=== PATIENT | female | born 1990 | race Caucasian/White ===

== ENCOUNTER 2025-06-25 11:20 | Outpatient (REF) | payer BC, OTHER, SELFPAY ==
--- OUTSIDE RECORDS SUMMARY | 2025-06-25 12:16 | XMS_ITS | Encounter Summary ---
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 Name Role Phone Kimber Steen MD Primary Care Provider Unavail able Encounter Details Date Type Department Care Team Description 03/08/2018 Business Doc Medical Records [address] [place] [id number] Abstract, Provider Social History Tobacco Use Types Packs/Day Years Used Date Smoking Tobacco: Every Day Cigarettes 0.5 Smokeless Tobacco: Never Comments:started at age 20 Alcohol Use Standard Drinks/Week Comments Yes 0 (1 standard drink = 0.6 oz pur e alcohol) beer on rare occasions Sex Assigned at Date Recorded Not on file documented as of this encounter Plan of Treatment Not on file documented as of this encounter Visit Diagnoses Not on filedocumented in this encounter Care Teams [employer] Relationship Specialty Start Date End Date Kimber Steen MD PCP - General Internal Medicine 01/06/18 documented as of this encounter
== END 2025-06-25 11:21 | disposition home or self-care (01) ==
LOC: HO.HOSX 11:20
PROVIDERS: Visit Provider Orthopaedic Surgery
DX: Z13.89 Encounter for screening for other disorder (principal)

== ENCOUNTER 2025-06-27 08:25 | Outpatient (AMB) | payer BC, SELFPAY ==
[2025-06-27 08:41] VITALS: BMI 23.0
--- NOTE | 2025-06-27 08:41 | A.OFFVIS_ITS ---
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 Patient reports she is having pain all around her wrist mainly on her ulnar aspect of hand. She is having numbness and tingling on and off thought out the day everyday and worsens at night time. She wears her wrist brace with some relief. This started about 1-2 years ago and has worsen in the last 3 weeks. No EMG done. 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 Her chief complaint is of right wrist and forearm pain that began about 3 weeks ago when she was using a knife in an X like motion to cut ribs and felt sudden pain in her wrist and forearm. This was then exacerbated by her activities at work. It sounds like she has not work now in a couple of weeks because they sent her home. She also appreciates numbness and tingling primarily to the right middle and ring fingers that it has gotten worse since this episode, but was present to some degree less frequently before hand. Now it is intermittent but daily. She has some pain in the ulnar aspect of her wrist but also in the 1st dorsal compartment area. She also has pain that radiates up the dorsal and ulnar aspect of her forearm to the lateral aspect of her right elbow. 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 Physical Exam Vital Signs: BMI result Body Mass Index 23.0 Const General: cooperative, healthy appearing and no acute distress Orientation/consciousness: oriented to person and oriented to place HEENT Head: Yes normocephalic and Yes atraumatic Eyes EOM: EOMs intact bilaterally Resp Effort & Inspection: normal respiratory effort and able to speak in complete sentences Cardio Jugular venous distension: no JVD Skin General skin exam: turgor normal Rashes: no rashes Neuro General: oriented to person and oriented to place Extrem Other: Evaluation of right Upper Extremity: Neuro: Median, ulnar, radial nerves motor and sensory intact. No thenar or intrinsic wasting. Good finger abduction adduction and APB muscle belly firing Vascular: Cap refill brisk. ROM: Can bring fingers closed to a fist and back out to full extension. She does have some pain referred to the dorsal aspect of her forearm and lateral aspect of her elbow with resisted middle and ring finger extension More Mild pain referred to the 1st dorsal compartment with resisted thumb extension Smooth and painless wrist ROM Skin: No lacerations or abrasions. General: No eccymosis. No erythema or evidence of infection. Mild tenderness over the ECU tendon as it passes over the distal ulna and the wrist joint. Mild foveal tenderness She also has some tenderness in the radial capitellar joint area, as well as in some of the dorsal musculature in her dorsal lateral forearm. Extensor origin is tender but not necessarily more tender than other areas Radiographs: Wrist radiographs show no fracture or dislocation or significant arthritic changes Psych Appearance: grossly normal Affect: normal affect Attitude: cooperative Assessment & Plan Assessment & Plan (1) Right wrist pain: Code(s): M25.531 - Pain in right wrist Category: Medical Plan Assessment and plan: 1. Right dorsal ulnar wrist pain radiating up the dorsal forearm to the lateral aspect of the right elbow After using a knife to chop ribs about 3 weeks ago Exacerbated by her activities at work as an patient day coordinator tech 2. Right hand numbness and tingling Began prior to this injury but now is intermittent and daily for the last 3 weeks Extending to the right middle and ring fingers I am ordering an EMG nerve conduction study I am writing her for light duty 2 lb weight limit for the right upper extremity and also to work 4 hours a day, as this is what she thinks she can do to possibly get back to work. Follow up in 3-4 weeks to review the nerve conduction study and see how she is doing I am hoping that her symptoms will improve with some time. At this point I am suspecting a mild tendinitis possibly in the dorsal lateral wrist also possibly mild lateral epicondylitis. A possible wrist sprain involving the ulnar aspect of the wrist is also possible. She has a volar wrist splint which I have told her to only wear with activities but to take off when at rest to work on maintaining wrist range of motion Orders: Orders XR wrist RT min 3V Today M25.531 - Pain in right wrist NE electromyogram (EMG) Today R20.0 - Anesthesia of skin, R20.2 - Paresthesia of skin NE nerve conduction velocity Today R20.0 - Anesthesia of skin, R20.2 - Paresthesia of skin Coding Level of Care Code New Pt Level 4 (03466) Diagnoses Right wrist pain M25.531
== END 2025-06-27 09:54 | disposition home or self-care (01) ==
LOC: HO.HOS 08:25
PROVIDERS: PCP Nurse Practitioner Family; Visit Provider Orthopaedic Surgery
DX: M25.531 Pain in right wrist (principal)
CPT/HCPCS: 99204

== ENCOUNTER → 2025-06-27 08:27 | Outpatient (BNV) | payer BC, SELFPAY | PROVIDERS: Visit Provider Radiology Diagnostic Radiology | DX: M25.531 Pain in right wrist (principal) | CPT/HCPCS: 73110 ==

== ENCOUNTER 2025-06-27 10:07 | Outpatient (REF) | payer BC, OTHER, SELFPAY ==
--- NOTE | ~2025-06-27 | XR_ITS ---
EXAMINATION: XR WRIST 3 OR MORE VIEWS RIGHT HISTORY: M25.531 - Pain in right wrist COMPARISON: There are no prior studies available for comparison. FINDINGS: Three views of the right wrist are submitted. Osseous mineralization is normal. There is no fracture or dislocation. The joint spaces are preserved. The soft tissues are unremarkable. XR/XR wrist RT min 3V IMPRESSION: Unremarkable examination of the right wrist. Electronically signed by: Amrit Martinez MD 06/27/2025 08:39 AM EDT
== END 2025-06-27 10:08 | disposition home or self-care (01) ==
LOC: HO.HOSX 10:07
PROVIDERS: Visit Provider Orthopaedic Surgery
DX: M25.531 Pain in right wrist (principal); M79.631 Pain in right forearm; R20.0 Anesthesia of skin; R20.2 Paresthesia of skin
CPT/HCPCS: 73110

== ENCOUNTER 2025-08-20 09:04 | Outpatient (REF) | payer BC, SELFPAY ==
--- NOTE | ~2025-08-20 | XR_ITS ---
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 FINDINGS: Lungs are clear, heart size normal. There is no sign of pleural effusion. Calcific density projects over the left lateral lower lung. It was present on the prior but partially obscured by pulmonary vessels. XR/XR chest 2V IMPRESSION: No acute disease Electronically signed by: Robert Adams MD 08/20/2025 02:10 PM EDT
[2025-08-20 14:20] LABS: Hematocrit 40.3 % (37.0-47.0); Hemoglobin 13.5 g/dl (12.0-16.0); Mean Corpuscular HGB Conc 33.5 g/dl (31.0-35.0); Mean Corpuscular Hemoglobin 32.8 pg (27.0-33.0); Mean Corpuscular Volume 97.8 fL (80.0-98.0); NRBC Abs Auto 0.000 X10*3/uL (0.0-0.012); NRBC Pct Auto 0.0 /100WBC (0.0-0.2); Platelet Count 283 X10*3/uL (160-400); Red Blood Count 4.12 X10*6/uL (4.20-5.50); White Blood Count 6.6 X10*3/uL (4.8-10.8)
[2025-08-20 14:30] LABS: Total Hemoglobin (HGBA1C) 3536.3527 umol/L
[2025-08-20 14:53] LABS: Alanine Aminotransferase 14 U/L (0-31); Albumin Level 4.3 g/dL (3.5-5.0); Alkaline Phosphatase 43 U/L (39-117); Anion Gap 8 (12-20); Aspartate Amino Transferase 26 U/L (5-31); Blood Urea Nitrogen 12 mg/dL (9-16); Calcium 9.1 mg/dL (8.4-10.2); Carbon Dioxide 24 mmol/L (22-29); Chloride 112 mmol/L (96-108); Cholesterol 145 mg/dL (<200); Estimated Glomerular Filt Rate > 60; HDL Cholesterol 45 mg/dL (>40); Potassium 4.1 mmol/L (3.3-5.1); Sodium 140 mmol/L (135-145); Total Protein 6.9 g/dL (6.5-8.0); Triglycerides 38 mg/dL (<150)
[2025-08-20 15:07] LABS: Folate 12.1 ng/mL (> or = 4.0); Vitamin B12 510 pg/mL (200-900)
[2025-08-21 05:16] LABS: Syphilis Screen Nonreactive (Nonreactive)
[2025-08-21 05:47] LABS: HBc Num1 0.06 S/CO (0.00-0.79); HBsAGNum1 0.34 S/CO (0.00-0.99); HIV Num 1 0.05 S/CO (0.00-0.99); Hepatitis A Antibody IgM 0.16 Index (0-0.79); Hepatitis B Surface Antigen Negative (Negative); ~HepC Num1 0.08 S/CO (0.00-0.79); ~Hepatitis A Antibody IgM Nonreactive (Nonreactive); ~Hepatitis B Surface Antibody REACTIVE (Nonreactive); ~Hepatitis C Antibody Nonreactive (Nonreactive)
== END 2025-08-20 09:05 | disposition home or self-care (01) ==
LOC: HO.WFDLDS 09:04
PROVIDERS: PCP Nurse Practitioner Family; Visit Provider Nurse Practitioner Family
DX: Z76.89 Persons encountering health services in other specified circumstances (principal); Z28.21 Immunization not carried out because of patient refusal; Z13.9 Encounter for screening, unspecified; R63.4 Abnormal weight loss; Q76.6 Other congenital malformations of ribs; F33.0 Major depressive disorder, recurrent, mild; F41.1 Generalized anxiety disorder; F14.10 Cocaine abuse, uncomplicated; K21.9 Gastro-esophageal reflux disease without esophagitis; N94.6 Dysmenorrhea, unspecified; R51.9 Headache, unspecified; M25.531 Pain in right wrist; F17.210 Nicotine dependence, cigarettes, uncomplicated; Z71.6 Tobacco abuse counseling
CPT/HCPCS: 36415; 71046; 80053; 80061; 82306; 82607; 82746; 83036; 84443; 85027; 86704; 86706; 86709; 86780; 86803; 87340; 87389; 96127

== ENCOUNTER 2025-08-20 09:04 | Outpatient (AMB) | payer BC, SELFPAY ==
--- NOTE | 2025-08-20 09:07 | MHC.PC.OV ---
Vital Signs 08/20/25 09:16 Height 5 ft 3 in Weight 127 lb 2 oz BMI 22.5 BP 132/70 Blood Pressure Location Lt brachial Position Sitting Respiration 12 Pulse 77 Pulse Source Pulse Oximeter Temp 97.2 F Temp Source Oral Pulse Oximetry (%) 98 Oxygen Delivery Method Room Air Intake Visit Reasons: CPE Intake Note: New patient to establish care and cpe. Sail Maker Required: No Allergies No Known Allergies Allergy (Mild, Verified 08/20/25 09:44) NOT APPLICABLE Medication List - [facility] Known Home Meds Tobacco use date assessed: 08/20/25 Dental Screening Dental Screen Date: 08/20/25 Did you have a dental visit in the last 12 months?: No Did you have a dental problem in the last 6 months where you did not have access to dental care?: No Was dental information given to patient?: No HPI HPI Comments History of Present Illness Details 34 y/o F with JUAN JOSE, RENUKA, MDD, cocaine use, Dysmenorrhea, headaches s/p tubal ligation, skin cyst of left leg removed in childhood. 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G scheduled 09/14/25 History of Present Illness The patient is a 34 year old female presenting to [facility] care, no previous records; states no PCP in years. c/o unintentional weight loss, painful menstrual periods, and bump/rib prominence. Unintentional weight loss: - Recent, significant unintentional weight loss. - Noted new rib bump possibly related, L side unsure if now visible d/t wt loss or something to be worried about - Feels bumps along jaw that she can move - Stress associated with familial and employment changes. - No weight loss medications; no strong cancer family history. Carpal tunnel syndrome (suspected), R - Ongoing wrist pain under orthopedic review. - Scheduled nerve test; no current confirmed diagnosis. - [facility] Cocaine use disorder: - 6-year history of cocaine use; recreational start now problematic. - Maintains consistent usage pattern; no treatment pursued yet. - Interested in [facility] referral and Com. Michael for help with + thrive and counseling Painful menses: - Regular cycles with intensified pain. - History of ovarian cyst surgery in youth. - Needs LONG LINE TEAMSTER , referred to [facility] LONG LINE TEAMSTER today Headaches worse around time of periods Gastroesophageal reflux disease (GERD): - Frequent heartburn. - Occasional omeprazole use (husbands) - Identified food triggers. Tob dep: smoking and vaping. Review of Systems - General: Reports unintentional weight loss, denies fatigue. - Neurological: Reports headaches. - Psych: Reports stress related to family and financial issues. - Respiratory: Denies shortness of breath. - Cardiovascular: Denies chest pain or palpitations. - Gastrointestinal: Reports frequent heartburn; denies vomiting or blood in stool. - Musculoskeletal: Reports wrist pain. - Skin: Reports recent development of a rash. - Genitourinary: Denies current urinary issues. - Hematological: Reports family history of liver cancer. Physical Exam General: Well developed, well nourished, in no acute distress. Appears older than stated age. Head: Normocephalic, atraumatic. Eyes: Pupils are equal, round and reactive to light and accommodation. Conjunctivae are clear, scleras anicteric Nose: Congested, turbinates edematous Pharynx/oral mucosa WNL. Shotty cervical anenopathy generally speaking, nontender Lungs:Dim throughout, anterior left rib is a bondy prominence, nontender, obvious when lying flat Heart: Regular rate and rhythm. No murmurs, click, rubs or gallops are noted. Abdomen: Bowel sounds present in all quadrants. Mildly tender generally speaking w/o rebound Musculoskeletal: Joints are nontender, without swelling, redness, or effusions. Pulses: Peripheral pulses are equal and palpable bilaterally. Extremities: No clubbing, cyanosis nor edema is noted. Psych: Mood and affect appropriate. Results Pending Discussion Notes I discussed with the patient the various aspects of her presentation, including the likely causes of her weight loss which could be stress-related given her family and housing changes, and she expressed concern for other potential medical explanations, leading us to plan comprehensive lab work and imaging. Refer to [facility] to support her in maintaining sobriety. We addressed concerns about her painful menstruation and aligned on pursuing further investigation, including a referral to obstetrics-gynecological referral. For GERD, dietary modification and timing of antacids were discussed, cautioning against using certain medications with stool tests to avoid interference. She consented to referrals and diagnostic procedures, understanding the importance of follow-up for an accurate diagnosis and management approach. Patient was given time to ask questions. All questions were answered to their satisfaction. Assessment and Plan 1. Unintentional weight loss - Labs and imaging ordered. - Explore stress and diet factors. 2. Carpal tunnel syndrome (suspected), R - Await nerve test results. - FU with [facility] 3. Cocaine use disorder - Referred to [facility]. - Support discussed. 4. Painful menses - Referral to MANAGER STUDY. 5. Gastroesophageal reflux disease (GERD) - Dietary and symptom advice given. - Medication timing discussed. Smoking cessation, CXR to eval finding on rib, NN referral for thrive and counseling, RTO 1 week to fu Patient Instructions - Get blood tests and x-ray as soon as possible. - Attend scheduled appointment at [facility] and MANAGER STUDY. - Watch for triggers that make heartburn worse and avoid them. - Take any medicine as directed by healthcare providers. - Monitor symptoms and tell us if they get worse. - Sign up for the Patient Portal for easy communication with us. Consent Patient was informed and verbally consented to the use of an ambient scribe for clinic note documentation during this visit. Total time spent caring for the patient today was 45 minutes. This includes time spent before the visit reviewing the chart, time spent during the visit, and time spent after the visit on documentation, reviewing laboratory results, diagnostic imaging, medications, performing a medically necessary evaluation, counseling on diagnoses, care coordination, ordering appropriate tests, ordering appropriate medications, review of tests performed by other providers, reporting test results with the patient, communication with other healthcare providers. [facility] Medical History (Updated 08/20/25 @ 10:13 by Soraya aSdler, [facility]) Drug addiction GERD (gastroesophageal reflux disease) Headache Surgical History (Updated 08/20/25 @ 09:22 by Sathish Bolden MA) H/O tubal ligation Family History (Updated 08/20/25 @ 09:23 by Sathish Bolden MA) Sister Asthma Father HTN (hypertension) High cholesterol Paternal Grandmother High cholesterol Paternal Grandfather Thyroid disorder Social History (Updated 08/20/25 @ 09:19 by Sathish Bolden MA) Household Members: Spouse and Children Both parents involved: No Caregiver staying overnight: No Housing: Condominium Are you a primary caregivers non medical to a significant other at home: Yes Do you presently have visiting nurse or other home services: No 75 years or older and lives alone: No Alcohol intake: current Alcohol intake frequency: a few times a month Patient Tobacco Use Status: Current everyday Tobacco user Tobacco use type: Cigarette Cigarettes Per Day: 4 e-Cigarette/Vaping Use: Never Used Second Hand Smoke Exposure: No Substance Use Type: Marijuana service: No Current occupational status: employed 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 1. Little interest or pleasure in doing things: several days 2. Feeling down, depressed, or hopeless: several days 3. Trouble falling or staying asleep, or sleeping too much: several days 4. Feeling tired or having little energy: several days 5. Poor appetite or overeating: several days 6. Feeling bad about yourself - or that you are a failure or have let yourself or your family down: several days 7. Trouble concentrating on things, such as reading the newspaper or watching television: several days 8. Moving or speaking so slowly that other people could have noticed. Or the opposite - being so fidgety or restless that you have been moving around a lot more than usual: several days 9. Thoughts that you would be better off or of hurting yourself in some way: not at all Total score: 8 Depression Screening Interpretation: Positive Depression Screening Follow-up: Existing condition and In treatment Depression Screening Done: Yes 08942 - PHQ-9 Billing: Yes Source: Developed by Drs. Amrit Dutton, Jocelyn Díaz, Justice White and colleagues, with an educational bert from [employer]. Thrive Questionnaire Date Thrive assessed: 08/20/25 I am a: Patient What is your living situation today?: I have a steady place to live Within the past 12 months, did the food you bought not last and you didn't have the money to get more?: Sometimes True Within the past 12 months, did you worry whether your food would run out before you got money to buy more?: Sometimes True Do you have trouble paying for medicines?: I choose not to answer this question Do you have trouble getting transportation to medical appointments?: No Do you have trouble paying your heating and electricity bill?: Yes Do you have trouble taking care of your child, family member or friend?: No Do you have trouble with day-to-day activities such as bathing, preparing meals, shopping, managing finances, etc.?: No Are you currently unemployed and looking for a job?: No Are you interested in more education?: No Please select the resources that you would like help with: None Currently or been in a relationship where the following occur: No concerns reported THRIVE Score: 3 AUDIT C Alcohol Use Questionnaire (AUDIT-C) 1. How often do you have a drink containing alcohol?: Monthly or less 2. How many drinks containing alcohol do you have on a typical day when you are drinking?: 1 or 2 3. How often do you have six or more drinks on one occasion?: Never Total Score: 1 Score Reviewed/Action Taken: Yes RENUKA-7 AMB Questionnaire RENUKA-7 Date RENUKA - 7 assessed: 08/20/25 Feeling nervous, anxious, or on edge: 0 = Not at all Not being able to stop or control worryin = Several days Worrying too much about different things: 1 = Several days Trouble relaxin = Several days Being so restless that it is hard to sit still: 1 = Several days Becoming easily annoyed or irritable: 1 = Several days Feeling afraid as if something awful might happen: 1 = Several days Total RENUKA-7 score (0-4 normal; 5-9 mild; 10-14 moderate; 15-21 severe): 6 Source: Developed by Drs. Amrit Dutton, Jocelyn Díaz, Justice White and colleagues, with an educational bert from [employer]. RENUKA-7 Assessment Billing RENUKA-7 Assessment Tool: RENUKA-7 Assessment 60400 Physical exam (Primary Care) Vital Signs: Last Vital Signs Temp 97.2 F 08/20/25 09:16 Pulse 77 08/20/25 09:16 Resp 12 08/20/25 09:16 BP 132/70 08/20/25 09:16 Pulse Ox 98 08/20/25 09:16 Oxygen Delivery Method Room Air 08/20/25 09:16 BMI result Body Mass Index 22.5 Tobacco/Smoking Status: Tobacco use Status Tobacco use date assessed 08/20/25 08/20/25 09:17 Patient Tobacco Use Status Current everyday Tobacco 08/20/25 09:23 Tobacco use type Cigarette 08/20/25 09:23 e-Cigarette/Vaping Use Never Used 08/20/25 09:19 Are you ready to quit: No Tobacco cessation counseling provided: Yes Items discussed: Nicotine replacement, QuitWorks and Other Relapse Prevention: discussed the importance of a supportive environment, discussed extending NRT, discussed negative mood or depression after quitting, weight gain after smoking is common and discussed dietary, exercise and/or lifestyle changes Number of minutes spent counselin CPT code: 77320 - 4-10 Minutes PHQ-9: PHQ-9 Score PHQ-9: Total score 8 08/20/25 09:17 Depression Screening Interpretation: Positive Depression Screening Follow-up: Existing condition and In treatment Thrive Assessment: Date of Thrive Assessment Date Thrive assessed 08/20/25 08/20/25 09:17 Currently or been in a relationship where the following occur: No concerns reported Coding Level of Care Code New Pt Level 4 (18679) Complex EM visit Add On G2211 Diagnoses Encounter to establish care with new provider Z76.89 Encounter for screening involving social determinants of health (SDoH) Z13.9 Mild episode of recurrent major depressive disorder F33.0 Major depression episode severity: mild RENUKA (generalized anxiety disorder) F41.1 Cocaine use disorder F14.10 Weight loss R63.4 Gastroesophageal reflux disease without esophagitis K21.9 Esophagitis presence: without esophagitis Dysmenorrhea N94.6 Influenza vaccination declined Z28.21 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 Tobacco dependence F17.200 Headache R51.9 Right wrist pain M25.531 Additional Codes RENUKA-7 Assessment Billing - RENUKA-7 Assessment Tool: RENUKA-7 Assessment 08962 ([id number]) PHQ-9 - 99635 - PHQ-9 Billing: Yes ([id number]) Vital Signs *Quality* - CPT code: 56261 - 4-10 Minutes ([id number]) Assessment & Plan Assessment & Plan (1) Encounter to establish care with new provider: Code(s): Z76.89 - Persons encountering health services in other specified circumstances Category: Medical (2) Encounter for screening involving social determinants of health (SDoH): Code(s): Z13.9 - Encounter for screening, unspecified Category: Medical (3) MDD (major depressive disorder), recurrent episode: Code(s): F33.9 - Major depressive disorder, recurrent, unspecified Category: Medical Qualifiers: Major depression episode severity: mild Qualified Code(s): F33.0 - Major depressive disorder, recurrent, mild (4) RENUKA (generalized anxiety disorder): Code(s): F41.1 - Generalized anxiety disorder Category: Medical (5) Cocaine use disorder: Code(s): F14.10 - Cocaine abuse, uncomplicated Category: Medical (6) Weight loss: Code(s): R63.4 - Abnormal weight loss Category: Medical (7) GERD (gastroesophageal reflux disease): Code(s): K21.9 - Gastro-esophageal reflux disease without esophagitis Category: Medical Qualifiers: Esophagitis presence: without esophagitis Qualified Code(s): K21.9 - Gastro-esophageal reflux disease without esophagitis (8) Dysmenorrhea: Code(s): N94.6 - Dysmenorrhea, unspecified Category: Medical (9) Influenza vaccination declined: Code(s): Z28.21 - Immunization not carried out because of patient refusal Category: Medical (10) Abnormal prominence of rib: Code(s): 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 Orders: Orders Complete Blood Count no Diff Today R63.4 - Abnormal weight loss Comprehensive Met. Panel Today R63.4 - Abnormal weight loss Hemoglobin A1c Today R63.4 - Abnormal weight loss Microalbumin, Random (w Creat) Today R63.4 - Abnormal weight loss UA CC w/rflx Micro + Cult Today R30.0 - Dysuria, R63.4 - Abnormal weight loss TSH reflex Free T4 Today R63.4 - Abnormal weight loss Vitamin D 25-OH Total Today R63.4 - Abnormal weight loss HIV Ab/Ag Today R63.4 - Abnormal weight loss Lipid Panel Today R63.4 - Abnormal weight loss Vitamin B12 and Folate Today R63.4 - Abnormal weight loss Syphilis Screen Today R63.4 - Abnormal weight loss Hepatitis A,B,C Profile Today R63.4 - Abnormal weight loss H pylori Ag Stool Today K21.9 - Gastro-esophageal reflux disease without esophagitis XR chest 2V Today F17.200 - Nicotine dependence, unspecified, uncomplicated, 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 Seasonal Allergies ? Insect Bites ? Cough ? Diarrhea ? Acute Asthma Attacks ? Back, Knee or Joint Pain ? Ear Infection ? Fever without a Rash ? Headaches ? Nausea ? [place] Eye, Rash or Skin Irritation ? Sore Throat ? Sports Physicals ? Vomiting Most insurances are accepted. Patients do not need to be part of the [facility] to seek care at the walk-in clinic. Locations [address], [place] Open Wednesday through Wednesday 8am-5pm *Hours may vary due to staffing availability. To confirm Walk-In Care hours please call. [facility] , [place] [address] ? [phone] [facility] [place] [place] Walk-In Care in [place] provides services to ages 18 and over. Open Wednesday-Wednesday: 7 a.m. to 5 p.m. and Wednesday: 9 a.m. to 3 p.m.* *Hours may vary due to staffing availability. To confirm Walk-In Care hours in [place], please call [phone]. [address] [place] [address] ? [phone] [facility] [place] [place] Walk-In Care in [place] provides services to ages 12 and over. Open Wednesday-Wednesday: 8 a.m. to 5 p.m. Hours may vary due to staffing availability. To confirm Walk-In Care hours in [place], please call [phone]. LABORATORY SERVICES: [facility] ? Primary Location [address] [place] [address] Wednesday through Wednesday 6:00 AM ? 5:00 PM Wednesday 7:00 AM ? 11:00 AM* [phone] [facility] is centrally located near the front entrance of the [facility] for easy outpatient access. Convenient parking is provided for outpatients. *Hours may vary due to staffing availability. To confirm Laboratory hours for any location, please call [phone]. Offsite Location For your convenience, we offer offsite laboratory draw stations at the following locations: [address] [place] [address] ? [facility] [address], [address] Wednesday through Wednesday 7:30 AM ? 1:00 PM* [phone] *Hours may vary due to staffing availability. To confirm Laboratory hours for any location, please call [phone]. [place] ? [address] Wednesday through Wednesday 6:00 AM ? 3:30 PM* Wednesday 6:30 AM ? 3 PM* [phone] *Hours may vary due to staffing availability. To confirm Laboratory hours for any location, please call [phone]. [address] [facility] Wednesday through Wednesday 7:30 AM ? 4:00 PM* [phone] *Hours may vary due to staffing availability. To confirm Laboratory hours for any location, please call [phone] [place] [address] Wednesday through 9:00 AM ? 4:00 PM* *Hours may vary due to staffing availability. To confirm Laboratory hours for any location, please call [phone]. Appointments are not necessary. Walk-ins are welcome. Like all the departments throughout the [facility], our Lab undergoes frequent reviews to ensure the quality and accuracy of test results, and our staff takes special pride in its status as a nationally accredited facility. Patient Portal: [facility] ONE PATIENT. ONE RECORD. BETTER CARE. [facility] has a fully integrated, cutting-edge mobile electronic health information system that has revolutionized the way we care for our patients and manage our organization. This system improves communication and coordination enabling us to provide safe, higher-quality care, and an overall positive experience for staff and patients. Our first priority, as always, is to deliver the highest quality care possible. The system is running in the background supporting that priority. This portal is for all [facility] services and practices. If you are experiencing any technical difficulties with enrolling or logging into the Patient Portal please complete the [facility] Patient Portal Technical Support Form. [facility] now offers a new secure on-line interactive tool for patients to review their health information ? ?Patient Portal. This interactive web portal will enable patients and their families to take an active role in their care by providing easy, secure access to their health information via the internet. The Patient Portal provides patients with instant access to their health information, including laboratory results, medications, allergies, demographic information, visit history, and more. In addition to managing their own care, parents and health care proxies with authorized consent will appreciate the ability to access the records of those individuals for whom they provide care. Please note: if you wish to gain access (Proxy) to another patient?s portal, you will be required to come to the Medical Records Department in person at [facility]. Both the patient giving proxy access and the proxy will need to provide photo identification and complete the appropriate authorization. The Patient Portal also allows track their appointments online. The [facility] Patient Portal also saves patients time by allowing them to submit updates to their demographic and contact information prior to their visits. Portal email notifications will also alert patients to any new activity on their portal, such as test results and new appointments. In order to initially enroll in the [facility] Patient Portal, you will need to enter some required information including the following: your [facility] Medical Record number your personal home email address name date of Please note: In order to enroll in the [facility] Patient Portal, we need to have your email address on file in your electronic medical record. ?The email address needs to be specific for one person (yourself) in order for your Portal enrollment to be successful. ?You can update your email address in person with our Registration staff when you are registering for a hospital visit. ?Otherwise, you will need to come to the Health Information Management (Medical Records) Department at [facility]. ?We are open from Wednesday ? Wednesday from 7:30 a.m. ? 4:30 p.m. ?You will be required to present a photo id. Once you have successfully enrolled in the Patient Portal, you will receive a one-time user id and password for the Portal, sent to your email address. ?This will allow you to log into the Patient Portal within 99 hrs and reset your own logon id and password, and define personal security questions. ?Once your permanent login and password have been set, you can log into the [facility] Patient Portal at any time via the blue button above or from the Portal Logon button on any page of the [facility] website. [facility] encourage all of our patients to enroll in Patient Portal as it presents a valuable opportunity for patients and their families to actively participate in their care and stay healthy Welcome to [facility]. ?We look forward to working with you.
[2025-08-20 09:16] VITALS: BP 132/70; PULSE 77; RESP 12; TEMP 36.2; O2SAT 98; BMI 22.5
== END 2025-08-20 10:06 | disposition home or self-care (01) ==
LOC: HO.HMCFM 09:05
PROVIDERS: PCP Nurse Practitioner Family; Visit Provider Nurse Practitioner Family
DX: F33.0 Major depressive disorder, recurrent, mild (principal); F14.10 Cocaine abuse, uncomplicated; R63.4 Abnormal weight loss; F41.1 Generalized anxiety disorder; K21.9 Gastro-esophageal reflux disease without esophagitis; N94.6 Dysmenorrhea, unspecified; R51.9 Headache, unspecified; M25.531 Pain in right wrist; Z28.21 Immunization not carried out because of patient refusal; Q76.6 Other congenital malformations of ribs; F17.200 Nicotine dependence, unspecified, uncomplicated

== ENCOUNTER → 2025-08-20 13:39 | Outpatient (BNV) | payer BC, SELFPAY | PROVIDERS: PCP Nurse Practitioner Family; Visit Provider Radiology Diagnostic Radiology | DX: Q76.6 Other congenital malformations of ribs (principal) | CPT/HCPCS: 71046 ==

== ENCOUNTER 2025-08-27 10:28 | Outpatient (AMB) | payer BC, SELFPAY ==
--- NOTE | 2025-08-27 10:31 | MHC.PC.OV ---
Vital Signs 08/27/25 10:36 08/27/25 11:15 Height 5 ft 3 in Weight 129 lb 6 oz BMI 22.9 BP 142/78 H 132/76 Blood Pressure Location Lt brachial Rt brachial Position Sitting Sitting Respiration 13 Pulse 78 Pulse Source Pulse Oximeter Temp 97.1 F Temp Source Oral Pulse Oximetry (%) 99 Oxygen Delivery Method Room Air Intake Visit Reasons: 1 week fu labs/wt loss 30 min Intake Note: Follow up review labs. Patient c/o upper abd px since this morning and worse when touching it. Shrub Planter Required: No Allergies No Known Allergies Allergy (Mild, Verified 08/27/25 10:32) NOT APPLICABLE Medication List - Last Reconciled 08/27/25 by GLORIA Su No Known Home Meds Tobacco use date assessed: 08/27/25 Dental Screening Dental Screen Date: 08/27/25 Did you have a dental visit in the last 12 months?: Yes Did you have a dental problem in the last 6 months where you did not have access to dental care?: No Was dental information given to patient?: Patient has dentist HPI HPI Comments History of Present Illness Details 34 y/o F with JUAN JOSE, RENUKA, MDD, cocaine use, Dysmenorrhea, headaches s/p tubal ligation, skin cyst of left leg removed in childhood. 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 Unintentional weight loss: - Recent, significant unintentional weight loss. - Noted new rib bump possibly related, L side unsure if now visible d/t wt loss or something to be worried about - Feels bumps along jaw that she can move - Stress associated with familial and employment changes. - No weight loss medications; no strong cancer family history. Carpal tunnel syndrome (suspected), R - Ongoing wrist pain under orthopedic review. - Scheduled nerve test; no current confirmed diagnosis. - [facility] Cocaine use disorder: - 6-year history of cocaine use; recreational start now problematic. - Maintains consistent usage pattern; no treatment pursued yet. - Interested in [facility] referral and [employer] [facility] for help with + thrive and counseling Painful menses: - Regular cycles with intensified pain. - History of ovarian cyst surgery in youth. - Needs HYDRAULIC AUTO JACK MECHANIC , referred to [facility] today Headaches worse around time of periods Gastroesophageal reflux disease (GERD): - Frequent heartburn. - Occasional omeprazole use (husbands) - Identified food triggers. Tob dep: smoking and vaping. 08/27/25 Since last OV, feels the same. Labs and CXR reviewed w/ her. Wrong phone # on chart so no referrals have been completed. She will complete the stool for H Pylori in about another week after holding her PPI. Review of Systems - General: Reports unintentional weight loss, denies fatigue. - Neurological: Reports headaches. - Psych: Reports stress related to family and financial issues. - Respiratory: Denies shortness of breath. - Cardiovascular: Denies chest pain or palpitations. - Gastrointestinal: Reports frequent heartburn; denies vomiting or blood in stool. - Musculoskeletal: Reports wrist pain. - Skin: Reports recent development of a rash. - Genitourinary: Denies current urinary issues. - Hematological: Reports family history of liver cancer. Physical Exam General: Well developed, well nourished, in no acute distress. Appears older than stated age. Head: Normocephalic, atraumatic. Eyes: Pupils are equal, round and reactive to light and accommodation. Conjunctivae are clear, scleras anicteric Nose: Congested, turbinates edematous Pharynx/oral mucosa WNL. Shotty cervical anenopathy generally speaking, nontender Lungs:Dim throughout, anterior left rib is a bondy prominence, nontender, obvious when lying flat Heart: Regular rate and rhythm. No murmurs, click, rubs or gallops are noted. Abdomen: Bowel sounds present in all quadrants. Mildly tender generally speaking w/o rebound Musculoskeletal: Joints are nontender, without swelling, redness, or effusions. Pulses: Peripheral pulses are equal and palpable bilaterally. Extremities: No clubbing, cyanosis nor edema is noted. Psych: Mood and affect appropriate. Results see below Discussion Notes I discussed with the patient the lack of recent progression in the calcific density over the left lateral lower lung and the option of further investigation through a CT scan, which may offer a more detailed assessment of the rib and lung area. The patient is advised to proceed with updating her contact information for accurate communications with other healthcare services, including addiction medicine and [facility]CRU[facility] appointments. We discussed obtaining a stool sample once omeprazole cessation is complete to investigate the abdominal pain etiology. Follow-up scheduling was proposed to assess ongoing symptoms and results from further evaluation. Patient was given time to ask questions. All questions were answered to their satisfaction. Assessment and Plan 1. Unintentional weight loss - Labs and imaging ordered. - Explore stress and diet factors. 2. Carpal tunnel syndrome (suspected), R - Await nerve test results. - FU with [facility] 3. Cocaine use disorder - [facility]. - Support discussed. 4. Painful menses - Referral to RECRUITER MANAGER. 5. Gastroesophageal reflux disease (GERD) - Dietary and symptom advice given. - Medication timing discussed. Smoking cessation, CT scan to eval finding on rib, NN referral for thrive and counseling, RTO 4 week to fu, sooner as needed. Consent Patient was informed and verbally consented to the use of an ambient scribe for clinic note documentation during this visit. Total time spent caring for the patient today was 30 minutes. This includes time spent before the visit reviewing the chart, time spent during the visit, and time spent after the visit on documentation, reviewing laboratory results, diagnostic imaging, medications, performing a medically necessary evaluation, counseling on diagnoses, care coordination, ordering appropriate tests, ordering appropriate medications, review of tests performed by other providers, reporting test results with the patient, communication with other healthcare providers. [facility] Medical History (Updated 08/20/25 @ 10:13 by Soraya Sadler, 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 Do you presently have visiting nurse or other home services: No 75 years or older and lives alone: No Alcohol intake: current Alcohol intake frequency: a few times a month Patient Tobacco Use Status: Current everyday Tobacco user Tobacco use type: Cigarette Cigarettes Per Day: 4 e-Cigarette/Vaping Use: Never Used Second Hand Smoke Exposure: No Substance Use Type: Marijuana service: No Current occupational status: employed 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 1. Little interest or pleasure in doing things: not at all 2. Feeling down, depressed, or hopeless: not at all 3. Trouble falling or staying asleep, or sleeping too much: not at all 4. Feeling tired or having little energy: not at all 5. Poor appetite or overeating: not at all 6. Feeling bad about yourself - or that you are a failure or have let yourself or your family down: not at all 7. Trouble concentrating on things, such as reading the newspaper or watching television: not at all 8. Moving or speaking so slowly that other people could have noticed. Or the opposite - being so fidgety or restless that you have been moving around a lot more than usual: not at all 9. Thoughts that you would be better off or of hurting yourself in some way: not at all Total score: 0 Depression Screening Interpretation: Negative Depression Screening Done: Yes 25418 - PHQ-9 Billing: Yes Source: Developed by Drs. Amrit Dutton, Jocelyn Díaz, Justice White and colleagues, with an educational bert from [employer]. Thrive Questionnaire Date Thrive assessed: 08/27/25 I am a: Patient What is your living situation today?: I have a steady place to live Within the past 12 months, did the food you bought not last and you didn't have the money to get more?: Sometimes True Within the past 12 months, did you worry whether your food would run out before you got money to buy more?: Sometimes True Do you have trouble paying for medicines?: I choose not to answer this question Do you have trouble getting transportation to medical appointments?: No Do you have trouble paying your heating and electricity bill?: Yes Do you have trouble taking care of your child, family member or friend?: No Do you have trouble with day-to-day activities such as bathing, preparing meals, shopping, managing finances, etc.?: No Are you currently unemployed and looking for a job?: No Are you interested in more education?: No Please select the resources that you would like help with: None Currently or been in a relationship where the following occur: No concerns reported THRIVE Score: 3 AUDIT C Alcohol Use Questionnaire (AUDIT-C) 1. How often do you have a drink containing alcohol?: Monthly or less 2. How many drinks containing alcohol do you have on a typical day when you are drinking?: 1 or 2 3. How often do you have six or more drinks on one occasion?: Less than monthly Total Score: 2 RENUKA-7 AMB Questionnaire RENUKA-7 Date RENUKA - 7 assessed: 08/27/25 Feeling nervous, anxious, or on edge: 0 = Not at all Not being able to stop or control worryin = Not at all Worrying too much about different things: 0 = Not at all Trouble relaxin = Not at all Being so restless that it is hard to sit still: 0 = Not at all Becoming easily annoyed or irritable: 0 = Not at all Feeling afraid as if something awful might happen: 0 = Not at all Total RENUKA-7 score (0-4 normal; 5-9 mild; 10-14 moderate; 15-21 severe): 0 Source: Developed by Drs. Amrit Dutton, Jocelyn Díaz, Justice White and colleagues, with an educational bert from [employer]. RENUKA-7 Assessment Billing RENUKA-7 Assessment Tool: RENUKA-7 Assessment 75957 Physical exam (Primary Care) Vital Signs: Last Vital Signs Temp 97.1 F 08/27/25 10:36 Pulse 78 08/27/25 10:36 Resp 13 08/27/25 10:36 BP 142/78 H 08/27/25 10:36 Pulse Ox 99 08/27/25 10:36 Oxygen Delivery Method Room Air 08/27/25 10:36 BMI result Body Mass Index 22.9 Tobacco/Smoking Status: Tobacco use Status Tobacco use date assessed 08/27/25 08/27/25 10:34 Patient Tobacco Use Status Current everyday Tobacco 08/27/25 10:34 Tobacco use type Cigarette 08/27/25 10:34 e-Cigarette/Vaping Use Never Used 08/27/25 10:34 Are you ready to quit: No Tobacco cessation counseling provided: Yes Items discussed: Nicotine replacement, QuitWorks and Other Relapse Prevention: discussed the importance of a supportive environment, discussed extending NRT, discussed negative mood or depression after quitting, weight gain after smoking is common and discussed dietary, exercise and/or lifestyle changes Number of minutes spent counselin CPT code: 79335 - 4-10 Minutes PHQ-9: PHQ-9 Score PHQ-9: Total score 0 08/27/25 10:34 Depression Screening Interpretation: Negative Thrive Assessment: Date of Thrive Assessment Date Thrive assessed 08/27/25 08/27/25 10:34 Currently or been in a relationship where the following occur: No concerns reported Results Reviewed Results Reviewed: FINDINGS: Lungs are clear, heart size normal. There is no sign of pleural effusion. Calcific density projects over the left lateral lower lung. It was present on the prior but partially obscured by pulmonary vessels. 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 Tobacco dependence F17.200 Weight loss R63.4 Cocaine use disorder F14.10 Gastroesophageal reflux disease without esophagitis K21.9 Esophagitis presence: without esophagitis Additional Codes RENUKA-7 Assessment Billing - RENUKA-7 Assessment Tool: RENUKA-7 Assessment 55616 ([id number]) PHQ-9 - 25997 - PHQ-9 Billing: Yes ([id number]) Vital Signs *Quality* - CPT code: 81499 - 4-10 Minutes ([id number]) Assessment & Plan Assessment & Plan (1) Abnormal prominence of rib: 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
[2025-08-27 10:36] VITALS: BP 142/78; PULSE 78; RESP 13; TEMP 36.2; O2SAT 99; BMI 22.9
[2025-08-27 11:15] VITALS: BP 132/76
== END 2025-08-27 11:03 | disposition home or self-care (01) ==
LOC: HO.HMCFM 10:28
PROVIDERS: PCP Nurse Practitioner Family; Visit Provider Nurse Practitioner Family
DX: Q76.6 Other congenital malformations of ribs (principal); F17.200 Nicotine dependence, unspecified, uncomplicated; R63.4 Abnormal weight loss; F14.10 Cocaine abuse, uncomplicated; K21.9 Gastro-esophageal reflux disease without esophagitis

== ENCOUNTER → 2025-08-27 10:28 | Outpatient (BNVA) | payer BC, SELFPAY | PROVIDERS: PCP Nurse Practitioner Family; Visit Provider Nurse Practitioner Family | DX: K21.9 Gastro-esophageal reflux disease without esophagitis (principal); R63.4 Abnormal weight loss; Q76.6 Other congenital malformations of ribs; F17.210 Nicotine dependence, cigarettes, uncomplicated; F14.10 Cocaine abuse, uncomplicated | CPT/HCPCS: 96127 ==

== ENCOUNTER 2025-09-07 10:35 | Outpatient (REF) | payer BC, SELFPAY ==
[2025-09-07 11:04] LABS: Appearance Urine Clear; Glucose Urine UA Negative (Negative); PH 6.5 (5.0-9.0); Specific Gravity - Urine 1.015 (1.005-1.025); UMIC TRIGGER UACC YES
[2025-09-07 11:09] LABS: UACC Culture Trigger YES
== END 2025-09-07 10:36 | disposition home or self-care (01) ==
LOC: HO.LNP 10:35
PROVIDERS: Visit Provider Nurse Practitioner Family
DX: K21.9 Gastro-esophageal reflux disease without esophagitis (principal); R63.4 Abnormal weight loss
CPT/HCPCS: 81001; 81003; 82043; 82570; 87086; 87338

== ENCOUNTER 2025-09-14 14:45 | Outpatient (REF) | payer BC, SELFPAY ==
--- NOTE | 2025-09-14 14:48 | EMG_ITS ---
Chief complaint: Right hand numbness Reason for referral: Evaluate for Carpal Tunnel Syndrome Referred by: Dr. Burden Procedure done: Right upper extremity NCS/EMG Precautions and/or limitations: None The limb temperature was monitored continuously and remained between 32-36 degrees C during the performance of the NCS. Nerve Conduction Studies Anti Sensory Summary Table ?Stim Site NR Onset (ms) Norm Onset (ms) Peak (ms) Norm Peak (ms) O-P Amp (?V) Norm O-P Amp Site1 Site2 Delta-0 (ms) Dist (cm) Nabil (m/s) Norm Nabil (m/s) Right Median Anti Sensory (2nd Digit) Wrist ? 2.9 3.5 <3.6 38.1 >10 Wrist 2nd Digit 2.9 14.0 48 Right Ulnar Anti Sensory (5th Digit) Wrist ? 2.3 3.0 <3.7 30.1 >15.0 Wrist 5th Digit 2.3 14.0 61 Motor Summary Table ?Stim Site NR Onset (ms) Norm Onset (ms) O-P Amp (mV) Norm O-P Amp iAmp (mV) Amp (1st) (%) Site1 Site2 Delta-0 (ms) Dist (cm) Nabil (m/s) Norm Nabil (m/s) Right Median Motor (Abd Poll Brev) Wrist ? 3.7 <3.9 13.6 >4.5 16.2 100.0 Elbow Wrist 3.5 18.5 53 >45 Elbow ? 7.2 12.6 14.9 92.6 Right Ulnar Motor (Abd Dig Minimi) Wrist ? 2.6 <3.0 9.1 >5 11.9 100.0 B Elbow Wrist 3.1 17.5 56 >45 B Elbow ? 5.7 9.0 11.8 98.9 A Elbow B Elbow 1.2 10.0 83 >45 A Elbow ? 6.9 8.4 11.3 92.3 Comparison Summary Table ?Stim Site NR Peak (ms) Norm Peak (ms) P-T Amp (?V) Site1 Site2 Delta-P (ms) Norm Delta (ms) Right Median/Radial Dig I Comparison (Digit 1 - 10cm) Median ? 3.1 <2.9 69.6 Median Radial 0.7 Radial ? 2.4 <2.8 23.9 EMG ?Side Muscle Nerve Root Ins Act Fibs Psw Amp Dur Poly Recrt Int Pat Comment Right 1stDorInt Ulnar C8-T1 Nml Nml Nml Nml Nml 0 Nml Complete Right FlexCarRad Median C6-7 Nml Nml Nml Nml Nml 0 Nml Complete Right Biceps Musculocut C5-6 Nml Nml Nml Nml Nml 0 Nml Complete Right Triceps Radial C6-7-8 Nml Nml Nml Nml Nml 0 Nml Complete Right Deltoid Axillary C5-6 Nml Nml Nml Nml Nml 0 Nml Complete FINDINGS: Significant interlatency difference between right median radial sensory nerves. Otherwise, all other motor and sensory nerves tested showed normal latencies, amplitudes and conduction velocities. Concentric needle EMG was performed in selected muscles of the right upper extremity. Study did not reveal signs of electric abnormalities as shown in the table above. IMPRESSION: 1. This is a minimally abnormal study. 2. 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 3. There is no electrodiagnostic evidence for ulnar neuropathy, brachial plexopathy, or cervical radiculopathy. Thank you for your kind referral. Monserrat Mccain MD, LUIS F Board Certified, [place] [employer] and Rehabilitation (ABPMR) Board Certified, [place] Board [employer] Electrodiagnostic Medicine (ABEM) CODIN 60911, 1 extremity MTDD
== END 2025-09-14 14:46 | disposition home or self-care (01) ==
LOC: HO.NEURO 14:45
PROVIDERS: Visit Provider Orthopaedic Surgery
DX: R20.0 Anesthesia of skin (principal); R20.2 Paresthesia of skin
CPT/HCPCS: 95886; 95909

== ENCOUNTER → 2025-09-14 15:00 | Outpatient (BNV) | payer BC, SELFPAY | PROVIDERS: Visit Provider Physical Medicine & Rehabilitation | DX: R20.0 Anesthesia of skin (principal) | CPT/HCPCS: 95886; 95909 ==

== ENCOUNTER 2025-09-24 11:00 | Outpatient (AMB) | payer BC, SELFPAY ==
[2025-09-24 11:20] VITALS: BP 110/60; PULSE 90; O2SAT 96; BMI 23.6
--- NOTE | 2025-09-24 11:20 | MHC.OFFVIS ---
Vital Signs 09/24/25 11:20 Height 5 ft 3 in Weight 133 lb BMI 23.6 BP 110/60 Pulse 90 Pulse Oximetry (%) 96 Intake Visit Reasons: MAT Intake Allergies No Known Allergies Allergy (Mild, Verified 09/24/25 11:21) NOT APPLICABLE HPI Comments Details: A 34-year-old female presents for a MAT intake r/t stimulant use disorder. Reports using cocaine on a daily basis and is ready to stop with assistance. Education provided on the importance of engaging in supportive services such as mental health therapy and engaging in a program with a primary focus on stimulant use disorder. 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 [facility], [facility] Medical History Drug addiction Headache GERD (gastroesophageal reflux disease) Surgical History H/O tubal ligation Family History Sister Asthma Father HTN (hypertension) High cholesterol Paternal Grandmother High cholesterol Paternal Grandfather Thyroid disorder Social History (Updated 08/20/25 @ 09:19 by Sathish Bolden MA) Household Members: Spouse and Children Both parents involved: No Caregiver staying overnight: No Housing: Condominium Are you a primary director long term care to a significant other at home: Yes Do you presently have visiting nurse or other home services: No 75 years or older and lives alone: No Alcohol intake: current Alcohol intake frequency: a few times a month Patient Tobacco Use Status: Current everyday Tobacco user Tobacco use type: Cigarette Cigarettes Per Day: 4 e-Cigarette/Vaping Use: Never Used Second Hand Smoke Exposure: No Substance Use Type: Marijuana service: No Current occupational status: employed 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 Cognitive needs: No Hearing needs: No Vision needs: No Review of Systems Const All systems reviewed & are unremarkable except as noted in HPI and below Physical Exam Vital Signs: Last Vital Signs Pulse 90 09/24/25 11:20 BP 110/60 09/24/25 11:20 Pulse Ox 96 09/24/25 11:20 BMI result Body Mass Index 23.6 Const General: cooperative Results AMB 14 Panel Urine Drug Screen Urine Marijuana (THC) Positive Last Edit by Jose Miguel Carson, GILMA on 09/24/25 11:24 Urine Cocaine Positive Last Edit by Jose Miguel Carson, GILMA on 09/24/25 11:24 Urine Morphine Negative Last Edit by Jose Miguel Carson, GILMA on 09/24/25 11:24 Urine Methamphetamine Negative Last Edit by Jose Miguel Carson, GILMA on 09/24/25 11:24 Urine Amphetamine Negative Last Edit by Jose Miguel Carson, LAMP STACK DEVELOPER on 09/24/25 11:24 Urine Benzodiazepine Negative Last Edit by Jose Miguel Carson, GILMA on 09/24/25 11:24 Urine Barbiturates Negative Last Edit by Jose Miguel Carson, GILMA on 09/24/25 11:24 Urine Methadone Negative Last Edit by Jose Miguel Carson, GILMA on 09/24/25 11:24 Urine Buprenorphine Negative Last Edit by Jose Miguel Carson, GILMA on 09/24/25 11:24 Urine Tricyclic Antidepressant Negative Last Edit by Jose Miguel Carson, GILMA on 09/24/25 11:24 Urine MDMA Negative Last Edit by Jose Miguel Carson, GILMA on 09/24/25 11:24 Urine Oxycodone Negative Last Edit by Jose Miguel Carson, GILMA on 09/24/25 11:24 Urine Phencyclidine Negative Last Edit by Jose Miguel Carson, GILMA on 09/24/25 11:24 Urine Propoxyphene Negative Last Edit by Jose Miguel Carson, GILMA on 09/24/25 11:24 Results Reviewed Results Reviewed: Laboratory Last Values POC Urine Buprenorphine Negative 09/24/25 11:22 POC Urine Morphine Negative 09/24/25 11:22 POC Urine Oxycodone Negative 09/24/25 11:22 POC Urine Methadone Negative 09/24/25 11:22 POC Urine Propoxyphene Negative 09/24/25 11:22 POC Urine Barbiturates Negative 09/24/25 11:22 POC U Tricyclic Antidpr Negative 09/24/25 11:22 POC Urine PCP Negative 09/24/25 11:22 POC Ur Amphetamines Negative 09/24/25 11:22 POC Ur Methamphetamine Negative 09/24/25 11:22 POC Urine MDMA Negative 09/24/25 11:22 POC Ur Benzodiazepine Negative 09/24/25 11:22 POC Urine Cocaine Positive 09/24/25 11:22 POC Ur Marijuana (THC) Positive 09/24/25 11:22 Assessment & Plan Assessment & Plan (1) Stimulant use disorder: Code(s): F15.90 - Other stimulant use, unspecified, uncomplicated Category: Medical Plan The plan of care is to start on topiramate 25 mg twice per day to assist in decreasing cravings for cocaine use. Education provided re: topiramate including purpose, side effects, and general medication information. A referral sent to [facility] for mental health services. Follow-up in 1 month or sooner if needed. Orders: Orders AMB 14 Panel Urine Drug Screen Today Z51.81 - Encounter for therapeutic drug level monitoring Medications: New topiramate Take half a tablet twice per day 25 mg (1/2 x 50 mg) PO BID 30 tabs 0RF 30 days Patient Instructions: - Start on topiramate as prescribed. - Follow up with community supportive services at [facility] for stimulant use program. - Follow-up in 1 month or sooner if needed. - Call with questions, concerns, or to report side effects/new onset of symptoms to [facility]. - The patient verbalized understanding and agreed with plan of care. 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 What is your current relationship status?: Current PCP: Soraya Ellison Date of last visit: 08/27/25 Referral Source: PCP Substance Abuse History Substance Abuse History (includes route, frequency and quantity): Cocaine (began using in 2017- 6 years) and Alcohol Age of first use: recreationally- a beer every now and then Social History Domestic Violence concerns: none Children: 3 sons- 13, 17, 21 Do you have a support system?: yes Current mode of transportation?: self Where are you currently residing?: [place] Are you using contraception?: No Details: Tubes tied after last child- vasectomy IV Drug Use Have you ever shared needles?: No Have you ever belonged to a needle exchange program?: No Do you buy needles at a pharmacy?: No Have you ever overdosed?: No Number of lifetime overdoses: 0 Have you ever been hospitalized for an overdose?: No Was Naloxone administered?: Not applicable Recovery History Have you had any periods of recovery?: No When was the last time you were in recovery?: Consistent use since 2016 Have you ever had inpatient treatment for your substance abuse disorder?: No Have you been in an inpatient detoxification program?: No Have you been in an inpatient Rehab/[place] [facility]?: No Have you been in an outpatient Methadone Maintenance program?: No Have you been in an outpatient Suboxone Maintenance program?: No Have you been in an AA/NA support program?: No Have you had a Recovery Support [place]?: No (Putting in application for peer recovery through [facility]) Have you had Peer Support?: No Behavioral Health History Do you have a current provider? If so, who?: No- putting in referral through [facility] diagnosis: no History of other addictive behavior: none History of inpatient psychiatric hospitalization? If so, how many? Most Recent? Where?: none History of self harming thoughts?: No History of homicidal or suicidal intentions?: No Medical Conditions Endocarditis?: No Skin Infection: No Seizure related to withdrawal or overdose: No Head or brain injury: No Hepatitis A (if yes, have you been treated?): No Hepatitis B (if yes, have you been treated?): No Hepatitis C (if yes, have you been treated?): No HIV (if yes, have you been treated?): No TB (if yes, have you been treated?): No Other: No Do you have any chronic pain conditions?: no Legal History History of incarceration: No Currently on parole or probation: No Court mandated programs: No Pending court cases: No DCF involvement: No
== END 2025-09-24 11:57 | disposition home or self-care (01) ==
LOC: HO.HCC 11:01
PROVIDERS: Visit Provider Clinical Nurse Specialist Psychiatric/Mental Health
DX: F15.90 Other stimulant use, unspecified, uncomplicated (principal); Z51.81 Encounter for therapeutic drug level monitoring
CPT/HCPCS: 99203

== ENCOUNTER → 2025-09-24 11:00 | Outpatient (BNVA) | payer BC, SELFPAY | PROVIDERS: Visit Provider Clinical Nurse Specialist Psychiatric/Mental Health | DX: F15.90 Other stimulant use, unspecified, uncomplicated (principal); F14.90 Cocaine use, unspecified, uncomplicated; Z51.81 Encounter for therapeutic drug level monitoring; Z79.899 Other long term (current) drug therapy | CPT/HCPCS: 80307 ==

== ENCOUNTER 2025-09-25 10:33 | Outpatient (AMB) | payer BC, SELFPAY ==
--- NOTE | 2025-09-25 11:35 | A.OFFVIS_ITS ---
Vital Signs 09/25/25 11:36 Height 5 ft 3 in Weight 133 lb BMI 23.6 Intake Visit Reasons: O/V EMG review rt hand Intake Note: Pearl 34 yr old right hand dominant female presents today for her EMG review of her right hand. States her symptoms have been daily on and off depending on activities. 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 IMPRESSION: 1. This is a minimally abnormal study. 2. 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 3. There is no electrodiagnostic evidence for ulnar neuropathy, brachial plexopathy, or cervical radiculopathy. 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 She continues to complain of numbness and tingling primarily to the right index, middle, and ring fingers. Symptoms intermittent but daily. She denies any thumb or small finger numbness. She says this is worse with use of her hand, such as at work. She says she also has some pain in her hand in the area of the carpal tunnel & wrist accompanied by her numbness, which makes some daily activities difficult. She says she is still limited in her daily activities and is only working part- time at the [employer] office. She has increased pain with prolonged gripping activities, and says she has been dropping things at work. She has been working light duty with restricted hours for several months now. She says her wrist & forearm pain has resolved, which she is happy about. She has a Hx of several years recreational cocaine use. She says she has just had her first appointment at a treatment center to discuss her drug use. [facility] Medical History Drug addiction Headache GERD (gastroesophageal reflux disease) Surgical History H/O tubal ligation Family History Sister Asthma Father HTN (hypertension) High cholesterol Paternal Grandmother High cholesterol Paternal Grandfather Thyroid disorder Social History Household Members: Spouse and Children Both parents involved: No Caregiver staying overnight: No Housing: Condominium Are you a primary home health care physician to a significant other at home: Yes Do you presently have visiting nurse or other home services: No 75 years or older and lives alone: No Alcohol intake: current Alcohol intake frequency: a few times a month Patient Tobacco Use Status: Current everyday Tobacco user Tobacco use type: Cigarette Cigarettes Per Day: 4 e-Cigarette/Vaping Use: Never Used Second Hand Smoke Exposure: No Substance Use Type: Marijuana service: No Current occupational status: employed 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 Cognitive needs: No Hearing needs: No Vision needs: No Review of Systems Const All systems reviewed & are unremarkable except as noted in HPI and below Physical Exam Vital Signs: BMI result Body Mass Index 23.6 Const General: no acute distress and alert Orientation/consciousness: patient oriented x3 Neuro General: patient oriented x3 Extrem Other: Evaluation of Right Upper Extremity: The patient is alert, oriented, and in no acute distress Neuro: Median, Ulnar, Radial nerves motor and sensory intact and sensation is normal to the tips of all digits today in clinic Vascular: Cap refill brisk ROM: Can bring fingers closed to a fist and back out to full extension. Smooth and painless wrist ROM She can hold all her fingers & her wrist extended against resistance without pain General: No tenderness over the ECU tendon No foveal tenderness Patient reports pain referred to the carpal tunnel area with prolonged gripping activities. Nerve Conduction Study: Right-side only IMPRESSION: 1. This is a minimally abnormal study. 2. 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 3. There is no electrodiagnostic evidence for ulnar neuropathy, brachial plexopathy, or cervical radiculopathy. Thank you for your kind referral. Monserrat Mccain MD, LUIS F 09/14/25 Psych Appearance: grossly normal Affect: normal affect Attitude: cooperative Assessment & Plan Assessment & Plan (1) Carpal tunnel syndrome of right wrist: Code(s): G56.01 - Carpal tunnel syndrome, right upper limb Category: Medical (2) Right wrist pain: Code(s): M25.531 - Pain in right wrist Category: Medical (3) Cocaine use disorder: Code(s): F14.10 - Cocaine abuse, uncomplicated Category: Medical Plan Assessment and plan: 1. Right carpal tunnel syndrome, very mild In the index, middle, and ring fingers Symptoms intermittent, but daily, worse with activities She has pain referred to the carpal tunnel area with prolonged gripping & use of her right hand. I educated her about this condition I discussed operative and non-operative treatment options The patient would like to proceed with surgery I discussed activity modification, she is to use her hand for normal daily activities, and work on increasing her activity level as tolerated I ordered OT hand therapy to work work on strengthening & normalizing function of her right hand. 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 She was given a note to return to work on light duty, 5 hours daily maximum, 5 days weekly without weight restrictions at this time. The risks and benefits of operative treatment were discussed with the patient and the patient wishes to proceed with surgery. These risks include, but are not limited to risk of damage to blood vessels, nerves, tendons, infection, recurrence, incomplete relief of preoperative symptoms, persistent pain, possible need for further surgery and the risks associated with regional blocks and anesthesia. The plan is to take the patient to the operating room sometime in the next few weeks for the following procedures: 1. Right carpal tunnel release, under local All of the preoperative paperwork including the consent was reviewed today. All the patient's questions were answered. The patient understands that they will be contacted by our physician assistant surgery soon to schedule this procedure She denies Diabetes, blood thinners, asthma, heart, lung, kidney issues She has a Hx of several years recreational cocaine use, and had her first appointment at a treatment center on 09/24/25 2. Right dorsal ulnar wrist pain radiating up the dorsal forearm to the lateral aspect of the right elbow This has resolved Scribed for Darby Burden MD by Ian Gutierrez, medical data analyst, on 09/25/25 at 12:00 PM, EST. Orders: Orders OT Evaluation and Treatment Today M25.531 - Pain in right wrist Coding Level of Care Code Est Pt Level 4 (51964) Diagnoses Carpal tunnel syndrome of right wrist G56.01 Right wrist pain M25.531 Cocaine use disorder F14.10
[2025-09-25 11:36] VITALS: BMI 23.6
== END 2025-09-25 12:37 | disposition home or self-care (01) ==
LOC: HO.HOS 10:33
PROVIDERS: Visit Provider Orthopaedic Surgery
DX: G56.01 Carpal tunnel syndrome, right upper limb (principal); M25.531 Pain in right wrist; F14.10 Cocaine abuse, uncomplicated
CPT/HCPCS: 99214

== ENCOUNTER 2025-10-25 15:28 | Outpatient (AMB) | payer BC, SELFPAY ==
[2025-10-25 15:43] VITALS: BP 110/60; PULSE 96; O2SAT 99; BMI 23.4
--- NOTE | 2025-10-25 15:43 | MHC.OFFVIS ---
Vital Signs 10/25/25 15:43 Height 5 ft 3 in Weight 132 lb BMI 23.4 BP 110/60 Pulse 96 Pulse Oximetry (%) 99 Intake Visit Reasons: Mat Allergies No Known Allergies Allergy (Mild, Verified 10/25/25 15:44) NOT APPLICABLE HPI Comments Details: A 34-year-old female presents for a follow-up visit r/t stimulant use disorder in early remission with topiramate 25 mg BID. Denies use of opiates, alcohol, other substances. Reports the topiramate helps to decrease cravings for cocaine. Engages in conversation re: keeping busy with supporting sons during season. [facility] initiating contact and is on a waiting list for mental health services. [facility] Medical History Drug addiction Headache GERD (gastroesophageal reflux disease) Surgical History H/O tubal ligation Family History Sister Asthma Father HTN (hypertension) High cholesterol Paternal Grandmother High cholesterol Paternal Grandfather Thyroid disorder Social History Household Members: Spouse and Children Both parents involved: No Caregiver staying overnight: No [facility]: [facility] Are you a primary director of patient care to a significant other at home: Yes Do you presently have visiting nurse or other home services: No 75 years or older and lives alone: No Alcohol intake: current Alcohol intake frequency: a few times a month Patient Tobacco Use Status: Current everyday Tobacco user Tobacco use type: Cigarette Cigarettes Per Day: 4 e-Cigarette/Vaping Use: Never Used Second Hand Smoke Exposure: No Substance Use Type: Marijuana service: No Current occupational status: employed 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 Cognitive needs: No Hearing needs: No Vision needs: No Review of Systems Const All systems reviewed & are unremarkable except as noted in HPI and below Physical Exam Vital Signs: Last Vital Signs Pulse 96 10/25/25 15:43 BP 110/60 10/25/25 15:43 Pulse Ox 99 10/25/25 15:43 BMI result Body Mass Index 23.4 Const General: cooperative Assessment & Plan Assessment & Plan (1) Stimulant use disorder: Code(s): F15.90 - Other stimulant use, unspecified, uncomplicated Category: Medical Plan The plan of care is to increase the topiramate from 25 mg BID to 50 mg BID to assist further in decreasing craving for a stimulant. Follow-up in 2 months or sooner if needed. Medications: Changed From topiramate Take half a tablet twice per day 25 mg (1/2 x 50 mg) PO BID 30 days 30 tabs 0RF To topiramate One tablet twice per day 50 mg PO BID 60 tabs 2RF 30 days Patient Instructions: - Start on increased dose of topiramate as prescribed. - Follow-up in 2 months or sooner if needed. - Call with questions, concerns, or to report side effects/new onset of symptoms to [facility]. - The patient verbalized understanding and agreed with plan of care. Coding Level of Care Code Est Pt Level 3 (85242) Diagnoses Stimulant use disorder F15.90
== END 2025-10-25 16:14 | disposition home or self-care (01) ==
LOC: HO.HCC 15:28
PROVIDERS: Visit Provider Clinical Nurse Specialist Psychiatric/Mental Health
DX: F15.90 Other stimulant use, unspecified, uncomplicated (principal)
CPT/HCPCS: 99213

== ENCOUNTER 2025-11-01 08:52 | Day surgery (SDC) | payer BC, SELFPAY ==
[2025-11-01 09:04] VITALS: BP 108/60; PULSE 80; RESP 16; TEMP 36.8; O2SAT 99; BMI 23.4
--- NOTE | 2025-11-01 09:34 | MHC.SHP ---
Pre-Procedural Eval Section A - 24 Hr Update-Section A only Date of Service: 11/01/25 The patient is an INPATIENT: No Changes since office visit: No Cold of Flu in the past 2 weeks, No New Medical Problems, No Changes in Medication and No Patient answered all questions The patient has been examined within 24 hours of the surgical procedure. The History & Physical has been completed within 30 days and I have reviewed it.: Yes Section B - Complete if H&P > 30 days Chief Complaint: Carpal tunnel syndrome, right upper limb Allergies: Allergies Allergy/AdvReac Type Severity Reaction Status Date / Time No Known Allergies Allergy Mild NOT Verified 10/25/25 15:44 APPLICABLE Plan Diagnosis/Plan: Unchanged I have reviewed the history and physical and performed a pertinent physical examination on my patient. No changes have occurred unless specified. Time Spent With Patient Time: Total time managing care of this patient today ____ minutes.
--- NOTE | 2025-11-01 09:35 | P.OP_ITS ---
Operative Note Operative Note Date of Service: 11/01/25 Narrative: Preop diagnosis: 1. Right Carpal tunnel syndrome Postop diagnosis: same Procedure: 1. Right Carpal tunnel release Surgeon: Darby Burden MD Supervisor Nutritional Yeast: Ramón MOON Anesthesia: local block using 1% lidocaine with epinephrine Findings: Thickened transverse carpal ligament. EBL: Less than 5 mL Specimens: None Complications: None Disposition: Brought to recovery room in stable condition Plan: Follow-up for 10-14 days for wound check and suture removal Indications: The patient is 34 years old, with right carpal tunnel syndrome that has been unresponsive to nonoperative management. The risks and benefits of operative treatment including but not limited to risk of damage to blood vessels, nerves, tendons, infection, persistent pain, persistent symptoms, or possible need for additional surgery were discussed with the patient and the patient wishes to proceed with surgery. Procedure: Once consent was obtained a local block was performed using a combination of 1% lidocaine with epinephrine. The patient was then brought back to the operating suite and placed on the operative table in supine position. The right upper extremity was prepped and draped in a standard surgical fashion. Once assured that we had a good block, a 2.0 cm longitudinal incision was made centered over the carpal tunnel. The incision was made through the skin to the subcutaneous tissues using a #15 blade. Dissection was made down to the level of the transverse carpal ligament with care being taken to protect the palmar cutaneous nerve. Once the transverse carpal ligament was clearly visualized, a longitudinal incision was made in the transverse carpal ligament 1st using a #15 blade, then using tenotomy scissors under direct visualization. Care was taken to look for and protect the motor branch of the median nerve when seen in this area. Once satisfied with our carpal tunnel release the wound was copiously irrigated with normal saline and hemostasis was obtained with a brief period of local pressure. The skin edges were reapproximated with some 5.0 nylon suture material and a sterile dressing was applied. The patient appears to have tolerated the procedure well and with no complications. All digits were well vascularized at the conclusion of the case.
[2025-11-01 11:53] VITALS: BP 128/62; PULSE 70; RESP 12; O2SAT 99
== END 2025-11-01 11:54 | disposition home or self-care (01) ==
PROVIDERS: PCP Nurse Practitioner Family; Visit Provider Orthopaedic Surgery
PROC: (CPT 64721; principal; 2025-11-01 10:50)
DX: G56.01 Carpal tunnel syndrome, right upper limb (principal); M25.531 Pain in right wrist; R20.0 Anesthesia of skin; R20.2 Paresthesia of skin; R51.9 Headache, unspecified; K21.9 Gastro-esophageal reflux disease without esophagitis; F14.10 Cocaine abuse, uncomplicated; F17.210 Nicotine dependence, cigarettes, uncomplicated; Z98.51 Tubal ligation status
CPT/HCPCS: 64721; J0165; J2003

== ENCOUNTER → 2025-11-01 08:52 | Outpatient (BNV) | payer BC, SELFPAY | PROVIDERS: PCP Nurse Practitioner Family; Visit Provider Orthopaedic Surgery | DX: G56.01 Carpal tunnel syndrome, right upper limb (principal) | CPT/HCPCS: 64721 ==

== ENCOUNTER 2025-11-13 09:33 | Outpatient (AMB) | payer BC, SELFPAY ==
[2025-11-13 09:43] VITALS: BMI 23.4
--- NOTE | 2025-11-13 09:43 | A.OFFVIS_ITS ---
Vital Signs 11/13/25 09:43 Height 5 ft 3 in Weight 132 lb BMI 23.4 Intake Visit Reasons: PO RT CTR 11/01/25 AR Intake Note: Pearl is a 34 year old right hand dominant female who presents today for a Post-Operative Visit status post Right Carpal Tunnel Release, DOS: 11/01/[address] Burden. Patient reports her symptoms have subsided and is doing well. Denies numbness, tingling, finger locking. Patient is not taking any pain medications at this time. Sutures removed and steri strips applied. Allergies No Known Allergies Allergy (Mild, Verified 11/13/25 09:51) NOT APPLICABLE HPI HPI PO RT CTR 11/01/25 AR: Details: Pearl is a 34 year old right hand dominant female who presents today for a Post-Operative Visit status post Right Carpal Tunnel Release, DOS: 11/01/[address] Burden. Patient reports her symptoms have subsided and is doing well. Denies numbness, tingling, finger locking. Patient is not taking any pain medications at this time. Sutures removed and steri strips applied. Patient is overall very satisfi ed with her course. 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 at home: Yes Do you presently have visiting nurse or other home services: No 75 years or older and lives alone: No Alcohol intake: current Alcohol intake frequency: a few times a month Patient Tobacco Use Status: Current everyday Tobacco user Tobacco use type: Cigarette Cigarettes Per Day: 4 e-Cigarette/Vaping Use: Never Used Second Hand Smoke Exposure: No Substance Use Type: Marijuana service: No Current occupational status: employed 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 Cognitive needs: No Hearing needs: No Vision needs: No Review of Systems Const All systems reviewed & are unremarkable except as noted in HPI and below Physical Exam Vital Signs: BMI result Body Mass Index 23.4 Const General: no acute distress and alert Orientation/consciousness: patient oriented x3 Neuro General: patient oriented x3 Extrem Other: Evaluation of Right Upper Extremity: The patient is alert, oriented, and in no acute distress Neuro: Median, Ulnar, Radial nerves motor and sensory intact and sensation is normal to the tips of all digits today in clinic Vascular: Cap refill brisk ROM: Can bring fingers closed to a fist and back out to full extension. Smooth and painless wrist ROM She can hold all her fingers & her wrist extended against resistance without pain. Very minimal tenderness to palpation around incision site on volar right wrist Incision site is clean, dry, and intact Psych Appearance: grossly normal Affect: normal affect Attitude: cooperative Assessment & Plan Assessment & Plan (1) Carpal tunnel syndrome of right wrist: Code(s): G56.01 - Carpal tunnel syndrome, right upper limb Category: Medical Plan 1. Status post right carpal tunnel release DOS 11/01/2025 With good symptomatic resolution postoperatively Patient appears to be recovering well postoperatively Patient is educated about the typical recovery course No under water times one-week, 2 lb weight limit x2 weeks Patient appears to be recovering very well, and requires no further acute follow-up with us postoperatively Patient is educated and worrisome signs and symptoms, and should call us if they experience any of these, including but not limited to redness, swelling, increased pain, and discharge Patient understands this and is amenable to this plan Coding Level of Care Code Global (97566) Diagnoses Carpal tunnel syndrome of right wrist G56.01
== END 2025-11-13 10:12 | disposition home or self-care (01) ==
LOC: HO.HOS 09:34
DX: G56.01 Carpal tunnel syndrome, right upper limb (principal)
CPT/HCPCS: 99024